=== PATIENT | male | born 1960 | race Caucasian/White ===

== ENCOUNTER 2023-09-04 08:35 | Emergency (ER) | payer OTHER ==
[~2023-09-04] VITALS: Ht 172.7 cm; Wt 83.9 kg
[2023-09-04 08:40] VITALS: BP_SYST 134; PULSE 78; RESP 16; TEMP 97.1; O2SAT 98
[2023-09-04 09:29] LABS: CALCIUM 9.3 mg/dL (8.4-11.0); CREATININE 1.19 mg/dL (0.55-1.30); POTASSIUM 4.9 mmol/L (3.5-5.1)
[2023-09-04 09:30] LABS: BASOPHILS % (AUTO) 0.6 % (0.0-2.0); EOSINOPHILS # (AUTO) 0.2 K/uL (0.0-0.4); EOSINOPHILS % (AUTO) 1.9 % (0.0-4.0); HEMATOCRIT 45.7 % (36-54); HEMOGLOBIN 15.8 g/dL (14.0-18.0); LYMPHOCYTES # (AUTO) 1.6 K/uL (1.0-5.5); LYMPHOCYTES % (AUTO) 19.1 % (20.5-51.5); MEAN CORPUSCULAR HEMOGLOBIN 33 pg (27-31); MEAN CORPUSCULAR HGB CONC 35 % (32-36); MEAN CORPUSCULAR VOLUME 95 fL (79.0-98.0); MONOCYTES # (AUTO) 0.7 K/uL (0.0-1.0); MONOCYTES % (AUTO) 8.4 % (1.7-9.3); NEUTROPHILS # (AUTO) 5.7 K/uL (1.8-7.7); PLATELET COUNT (AUTO) 313 K/uL (130-430); RED BLOOD CELL COUNT(AUTO) 4.83 MIL/uL (4.2-6.2); RED CELL DISTRIBUTION WIDTH 13.2 % (9.0-15.0); WHITE BLOOD COUNT (AUTO) 8.2 K/uL (4.8-10.8)
[2023-09-04 09:34] LABS: BILIRUBIN,URINE NEGATIVE (NEGATIVE); BLOOD, URINE NEGATIVE (NEGATIVE); CLARITY/URINE CLEAR (CLEAR); COLOR,URINE YELLOW (YELLOW); GLUCOSE,URINE NEGATIVE (NEGATIVE); KETONES,URINE NEGATIVE (NEGATIVE); LEUKOCYTE ESTERASE ,URINE NEGATIVE (NEGATIVE); NITRITE, URINE NEGATIVE (NEGATIVE); PROTEIN URINE NEGATIVE (NEGATIVE); UROBILINOGEN,URINE 0.2 (0.2-1.0)
[2023-09-04 10:01] VITALS: BP_SYST 142; PULSE 86; RESP 18; TEMP 98; O2SAT 100
== END 2023-09-04 10:03 | disposition home or self-care (01) ==
LOC: SED 08:35
DX: M54.50 Low back pain, unspecified (principal); K59.00 Constipation, unspecified; E86.0 Dehydration; R11.0 Nausea; Z79.899 Other long term (current) drug therapy
CPT/HCPCS: 36415; 71045; 72100; 80048; 80178; 81001; 81003; 85025; 93005; 99285